=== PATIENT | male | born 1995 | race African-American/Black ===

== ENCOUNTER 2023-12-11 17:06 | Inpatient (IN) | payer OTHER ==
[2023-12-11 18:23] VITALS: BMI 25.6
[2023-12-11] MEDS ORDERED: guaiFENesin 600 MG TABLET.ER (FP) PO PRN (20:04)
[2023-12-11] MEDS ORDERED: MAGNESIUM HYDROX 2400MG/30ML ORAL SUSPENSION 30 ML CUP PO PRN (20:04)
[2023-12-11] MEDS ORDERED: BENZOCAINE/MENTHOL (CHLORASEPTIC ) LOZENGE MM PRN (20:04)
[2023-12-11] MEDS ORDERED: LOPERAMIDE HCL 2 MG CAPSULE PO PRN (20:04)
[2023-12-11] MEDS ORDERED: P-EPHED 60MG/TRIPROLIDI 2.5MG TABLET PO PRN (20:04)
[2023-12-11] MEDS ORDERED: POLYETHYLENE GLYCOL (HEALTHYLAX) 3350 17 GM PACKET PO PRN (20:04)
[2023-12-11] MEDS ORDERED: BENZONATATE 200 MG CAPSULE PO PRN (20:04)
[2023-12-11] MEDS ORDERED: MAG HYDROX/AL HYDROX/SIMETH 30 ML UNIT-DOSE CUP PO PRN (20:04)
[2023-12-12] MEDS: THIAMINE 100 MG TABLET PO SCH
[2023-12-12] MEDS: MELATONIN 5 MG TABLETS PO SCH
[2023-12-12] MEDS: PRENATAL VITAMINS W/ FOLIC ACID TABLET (FP) PO SCH (10:15)
[2023-12-12 12:11] LABS: HEMATOCRIT 38.4 % (35.4-49); HEMOGLOBIN 12.9 GM/dL (11.7-16.9); MCH 30.5 pg (25.7-33.7); MCHC 33.6 g/dl (32.0-35.9); MEAN CELL VOLUME 90.8 fl (80-96); MEAN PLT VOLUME 7.8 fl (7.5-11.1); PLATELET COUNT 325 10^3/uL (134-434); RBC 4.23 M/mm3 (4.00-5.60); RDW 15.1 % (11.9-15.9); WHITE BLOOD COUNT 7.6 K/mm3 (4.0-10.0)
[2023-12-12] MEDS: TUBERCULIN PPD 5 TU/0.1ML SYRINGE (IN PATIENT USE ONLY) ID ONE (12:13)
[2023-12-12 12:21] LABS: POTASSIUM 4.7 mmol/L (3.5-5.1)
[2023-12-12 12:39] LABS: CALCIUM 9.2 mg/dL (8.5-10.1)
[2023-12-12 12:40] LABS: ALBUMIN 3.2 g/dl (3.4-5.0); BLOOD UREA NITROGEN 14.8 mg/dL (7-18)
[2023-12-12 12:43] LABS: CREATININE 0.8 mg/dL (0.55-1.3)
[2023-12-12 12:45] LABS: BILIRUBIN,TOTAL 0.4 mg/dL (0.2-1); TOT PROT 6.5 g/dl (6.4-8.2)
[2023-12-12 20:44] LABS: URINE APPEARANCE CLEAR; URINE BILIRUBIN NEGATIVE (NEGATIVE); URINE COLOR YELLOW; URINE GLUCOSE (UA) NEGATIVE (NEGATIVE); URINE KETONE NEGATIVE (NEGATIVE); URINE LEUK ESTERASE NEGATIVE (NEGATIVE); URINE NITRITE NEGATIVE (NEGATIVE); URINE PROTEIN NEGATIVE (NEGATIVE); URINE UROBILINOGEN 0.2 mg/dL (0.2-1.0)
[2023-12-12] MEDS: IBUPROFEN 600 MG TABLET (FP) PO PRN (21:16)
[2023-12-13] MEDS: AMOXICILLIN 500 MG CAPSULE (FP) PO SCH (18:07)
[2023-12-13] MEDS: ACETAMINOPHEN 325 MG TABLET (FP) PO ONE (18:07)
[2023-12-13] MEDS: BENZOCAINE 20 % GEL TUBE MM PRN (21:07)
[2023-12-14] MEDS: hydrOXYzine PAMOATE 25 MG CAPSULE (FP) PO PRN (05:43)
[2023-12-14] MEDS: HALOPERIDOL 5 MG TABLET PO SCH (10:23)
[2023-12-14] MEDS: BACLOFEN 10 MG TABLET (FP) PO SCH (14:23)
[2023-12-15] MEDS: NICOTINE POLACRILEX 2 MG LOZENGE BC PRN (19:17)
[2023-12-16] MEDS: NICOTINE POLACRILEX 2 MG GUM BUC PRN (00:48)
[2023-12-17 07:04] VITALS: RESP 18
[2023-12-17] MEDS: IBUPROFEN 400 MG TABLET (FP) PO PRN (15:09)
[2023-12-17] MEDS: ACETAMINOPHEN 325 MG TABLET (FP) PO PRN (15:33)
[2023-12-18 06:42] VITALS: BP 132/73; PULSE 88; TEMP 97.3
== END 2023-12-18 09:28 | disposition home or self-care (01) | DRG 772 ==
LOC: YASAS 17:06 → Y5N 23:22
PROVIDERS: ADMIT Allergy & Immunology; ATTEND Psychiatry & Neurology Pain Medicine
PROC: HZ42ZZZ Group Counseling for Substance Abuse Treatment, Cognitive-Behavioral (ICD-10-PCS; principal; 2023-12-11)
DX: F14.20 Cocaine dependence, uncomplicated (principal); F16.20 Hallucinogen dependence, uncomplicated; F12.20 Cannabis dependence, uncomplicated; F17.210 Nicotine dependence, cigarettes, uncomplicated; F20.9 Schizophrenia, unspecified; F19.982 Other psychoactive substance use, unspecified with psychoactive substance-induced sleep disorder; K02.9 Dental caries, unspecified; K50.10 Crohn's disease of large intestine without complications; Z56.0 Unemployment, unspecified; Z59.00 Homelessness unspecified
CPT/HCPCS: 36415; 80053; 80305; 80307; 81003; 85027; 86780; 93005; 93010; J0475